=== PATIENT | male | born 1980 | race Caucasian/White ===

== ENCOUNTER 2017-02-27 13:45 | Outpatient (CLI) | payer MEDICAID ==
[2017-03-01 00:23] LABS: AMPHETAMINES NEGATIVE ng/mL (< 500); BARBITURATES NEGATIVE ng/mL (< 300); BENZODIAZEPINES NEGATIVE ng/mL (< 100); MARIJUANA METABOLITE NEGATIVE ng/mL (< 20); MEDMATCH AMPHETAMINES INCONSISTENT (()); MEDMATCH BARBITURATES CONSISTENT (-); MEDMATCH BENZODIAZEPINES CONSISTENT (-); MEDMATCH COCAINE METAB CONSISTENT (-); MEDMATCH MARIJUANA METAB CONSISTENT (-); MEDMATCH METHADONE METAB CONSISTENT (-); MEDMATCH OPIATES CONSISTENT (-); MEDMATCH OXYCODONE CONSISTENT (-); MEDMATCH PHENCYCLIDINE CONSISTENT (-); METHADONE METABOLITE NEGATIVE ng/mL (< 100); OPIATES NEGATIVE ng/mL (< 100); OXIDANT NEGATIVE mcg/mL (< 200); PHENCYCLIDINE NEGATIVE ng/mL (< 25); PRESCRIBED DRUG 1 Adderall(TM) (())
== END 2017-02-27 13:46 | disposition home or self-care (01) ==
LOC: LAB.R 13:45
PROVIDERS: ATTEND Nurse Practitioner Family
DX: F90.0 Attention-deficit hyperactivity disorder, predominantly inattentive type (principal)
CPT/HCPCS: 80307

== ENCOUNTER 2017-05-28 09:20 | Outpatient (CLI) | payer MEDICAID | END 2017-05-28 09:21 | disposition home or self-care (01) | LOC: LAB.R 09:20 | PROVIDERS: ATTEND Nurse Practitioner Family | DX: F90.0 Attention-deficit hyperactivity disorder, predominantly inattentive type (principal) | CPT/HCPCS: 80307 ==

== ENCOUNTER 2017-08-15 08:00 | Outpatient (CLI) | payer MEDICAID ==
[2017-08-15 17:25] LABS: MUDS CUTOFF CONCENTRATIONS CUTOFF CONC BELOW:
[2017-08-15 17:48] LABS: COCAINE SCREEN URINE NEGATIVE (NEGATIVE); METHAMPHETAMINES SCREEN, URINE NEGATIVE (NEGATIVE); OPIATE SCREEN, URINE NEGATIVE (NEGATIVE)
[2017-08-15 17:49] LABS: AMPHETAMINE SCREEN,URINE POSITIVE (NEGATIVE); BENZODIAZEPINES SCREEN, URINE NEGATIVE (NEGATIVE); METHADONE SCREEN, URINE NEGATIVE (NEGATIVE); OXYCODONE SCREEN, URINE NEGATIVE (NEGATIVE); PROPOXYPHENE SCREEN, URINE NEGATIVE (NEGATIVE); TRICYCLIC ANTIDEPRESSANT,URINE NEGATIVE (NEGATIVE)
== END 2017-08-15 08:01 | disposition home or self-care (01) ==
LOC: LAB.R 08:00
PROVIDERS: ATTEND Nurse Practitioner Family
DX: F98.8 Other specified behavioral and emotional disorders with onset usually occurring in childhood and adolescence (principal)
CPT/HCPCS: 80306

== ENCOUNTER 2017-09-10 13:55 | Outpatient (CLI) | payer MEDICAID | END 2017-09-10 13:56 | disposition home or self-care (01) | LOC: LAB.R 13:55 | PROVIDERS: ATTEND Nurse Practitioner Family | DX: F90.0 Attention-deficit hyperactivity disorder, predominantly inattentive type (principal) | CPT/HCPCS: 80307; 80321; 80324; 80346; 80354; 80362; 81599 ==

== ENCOUNTER 2017-12-11 08:00 | Outpatient (CLI) | payer MEDICAID ==
[2017-12-12 08:58] LABS: MUDS CUTOFF CONCENTRATIONS CUTOFF CONC BELOW:
[2017-12-12 09:23] LABS: AMPHETAMINE SCREEN,URINE NEGATIVE (NEGATIVE); BENZODIAZEPINES SCREEN, URINE NEGATIVE (NEGATIVE); COCAINE SCREEN URINE NEGATIVE (NEGATIVE); METHADONE SCREEN, URINE NEGATIVE (NEGATIVE); METHAMPHETAMINES SCREEN, URINE NEGATIVE (NEGATIVE); OPIATE SCREEN, URINE NEGATIVE (NEGATIVE); OXYCODONE SCREEN, URINE NEGATIVE (NEGATIVE); PROPOXYPHENE SCREEN, URINE NEGATIVE (NEGATIVE); TRICYCLIC ANTIDEPRESSANT,URINE NEGATIVE (NEGATIVE)
== END 2017-12-11 23:59 ==
LOC: LAB.R 08:00
PROVIDERS: ATTEND Nurse Practitioner Family
DX: F90.0 Attention-deficit hyperactivity disorder, predominantly inattentive type (principal); Z79.899 Other long term (current) drug therapy
CPT/HCPCS: 80306

== ENCOUNTER 2018-03-11 14:53 | Outpatient (CLI) | payer MEDICAID | END 2018-03-11 14:54 | disposition home or self-care (01) | LOC: LAB.R 14:53 | PROVIDERS: ATTEND Nurse Practitioner Family | DX: F90.0 Attention-deficit hyperactivity disorder, predominantly inattentive type (principal); Z79.899 Other long term (current) drug therapy | CPT/HCPCS: 80306 ==

== ENCOUNTER 2018-10-02 19:40 | Emergency (ER) | payer MEDICAID ==
[2018-10-02 19:52] VITALS: BP 154/87
[2018-10-02] MEDS ORDERED: AMOXICILLIN 250 MG CAPSULE PO STA (20:49)
[2018-10-02] MEDS ORDERED: DEXAMETHASONE 10 MG/ML VIAL PO STA (20:49)
[2018-10-02] MEDS ORDERED: IBUPROFEN 800 MG TABLET PO STA (20:50)
--- NOTE | 2018-10-02 21:01 | ED Physician Documentation ---
PD HPI URI - Stated complaint Stated Complaint: EAR PX - Chief complaint Chief Complaint: Wound - History obtained from History obtained from: Patient - History of Present Illness Timing - onset: Yesterday Timing duration: Days (2) Timing details: Gradual onset Pain level max: 7 Pain level now: 5 Associated symptoms: Ear pain (L ear pain). No: Fever, Chills, Rhinorrhea, Sinus pain, Sore throat, Dry cough, Dyspnea Contributing factors: Sick contact, Travel ([facility]). No: Immunocompromised, Unimmunized Improves by: Rest, Medication (motrin) Worsened by: Other (nothing) Recently seen: Not recently seen Review of Systems Constitutional: denies: Fever, Chills Throat: denies: Sore throat GI: denies: Abdominal Pain, Vomiting, Diarrhea Skin: reports: Rash (bug bites while on vacations) Neurologic: denies: Headache PD PAST MEDICAL HISTORY - Past Medical History Past Medical History: No Cardiovascular: None Respiratory: None Neuro: None Endocrine/Autoimmune: None GI: None : None HEENT: None Psych: None Musculoskeletal: None Derm: None - Past Surgical History Past Surgical History: No - Present Medications Home Medications: Ambulatory Orders Medication Instructions Recorded Confirmed Amoxicillin 500 mg PO TID #30 capsule 10/02/18 Dextroamphetamine/Amphetamine 1 tab PO DAILY 10/02/18 10/02/18 [Adderall 30 mg Tablet] - Allergies Allergies/Adverse Reactions: Allergies Allergy/AdvReac Type Severity Reaction Status Date / Time No Known Drug Allergies Allergy Verified 10/02/18 19:52 - Social History Does the pt smoke?: No Smoking Status: Never smoker Does the pt drink ETOH?: Yes ETOH Use: Beer Does the pt have substance abuse?: No - Immunizations Immunizations are current?: Yes - POLST Patient has POLST: No PD ED PE NORMAL - Vitals Vital signs reviewed: Yes - General General: Alert and oriented X 3, No acute distress - HEENT HEENT: Moist mucous membranes, Pharynx benign, Other (L TM Is erythematous, retracted with purulent fluid. Right TM is normal.) - Neck Neck: Supple, no meningeal sign, No adenopathy - Cardiac Cardiac: RRR, Strong equal pulses - Respiratory Respiratory: No respiratory distress, Clear bilaterally - Abdomen Abdomen: Soft, Non tender, Non distended - Derm Derm: Warm and dry, Other (Bug bites to the right arm) - Neuro Neuro: Alert and oriented X 3 - Psych Psych: Normal mood, Normal affect Results - Vitals Vitals: Vital Signs - 24 hr 10/02/18 19:49 Temperature 36.5 C Heart Rate 114 H Respiratory 16 Rate Blood Pressure 154/87 H O2 Saturation 98 Oxygen O2 Source Room air PD MEDICAL DECISION MAKING - ED course Complexity details: considered differential, d/w patient ED course: 38-year-old male with a left acute otitis media. Will place on antibiotics and follow-up with his doctor. He is well-appearing, nontoxic. Patient counseled regarding signs and symptoms for which I believe and urgent re-evaluation would be necessary. Patient with good understanding of and agreement to plan and is comfortable going home at this time This document was made in part using voice recognition software. While efforts are made to proofread this document, sound alike and grammatical errors may occur. Departure - Departure Disposition: 01 Home, Self Care Clinical Impression: Otitis media Qualifiers: Otitis media type: unspecified Chronicity: acute Qualified Code(s): H66.90 - Otitis media, unspecified, unspecified ear Condition: Good Instructions: ED Otitis Media Acute Adult Follow-Up: Julissa Archuleta ARNP [Primary Care Provider] - Within 1 week Prescriptions: Amoxicillin 500 mg PO TID #30 capsule Comments: Take all antibiotics until gone. Return if you worsen.
[2018-10-02] MEDS ORDERED: CHERRY SYRUP 10 ML UDC PO ONE (21:15)
== END 2018-10-02 21:23 | disposition home or self-care (01) ==
LOC: ED 19:40
DX: H66.92 Otitis media, unspecified, left ear (principal)
CPT/HCPCS: 99283; A9270

== ENCOUNTER 2020-01-15 13:52 | Outpatient (CLI) | payer MEDICAID | END 2020-01-15 13:53 | disposition home or self-care (01) | LOC: LAB 13:52 | PROVIDERS: ATTEND Family Medicine | DX: Z20.828 Contact with and (suspected) exposure to other viral communicable diseases (principal) | CPT/HCPCS: 81599 ==

== ENCOUNTER 2021-02-21 11:23 | Outpatient (CLI) | payer MEDICAID ==
--- NOTE | 2021-02-21 11:51 | XRAY Report ---
PROCEDURE: Lumbar Spine 2 View INDICATIONS: LOW BACK PAIN TECHNIQUE: 3 views of the lumbar spine were acquired. COMPARISON: None. FINDINGS: Bones: 5 [id number] vertebrae are present. There is normal bony alignment. No vertebral body compression fractures. No suspicious bony lesions. Soft tissues: Overlying bowel gas pattern is normal. No suspicious soft tissue calcifications. IMPRESSION: Normal lumbar spine Reviewed by: Jim Mann on 02/21/2021 11:50 AM PDT Approved by: Jim Mann on 02/21/2021 11:50 AM PDT Station ID: [id number]
--- NOTE | 2021-02-21 11:52 | XRAY Report ---
PROCEDURE: Sacrum/Coccyx INDICATIONS: BACK PAIN TECHNIQUE: 3 views of the sacrum and coccyx acquired. COMPARISON: None. FINDINGS: No fracture. Sacroiliac joints appear grossly intact. No evidence of erosions or ankylosis. Mild lowe r lumbar facet arthropathy. IMPRESSION: Unremarkable examination. If the patient's pain or other symptoms persist, consider further evaluatio n with pelvis MRI. Reviewed by: Donald Cantrell MD on 02/21/2021 11:51 AM PDT Approved by: Donald Cantrell MD on 02/21/2021 11:51 AM PDT Station ID: [id number]
== END 2021-02-21 11:24 | disposition home or self-care (01) ==
LOC: DI.S 11:23
PROVIDERS: ATTEND Naturopath
DX: M54.5 Low back pain (principal)

== ENCOUNTER 2022-06-07 11:11 | Outpatient (CLI) | payer MEDICAID ==
[2022-06-07 14:43] LABS: BASOPHILS % (AUTO) 0.6 %; EOSINOPHILS # (AUTO) 0.1 10^3/uL (0.0-0.7); EOSINOPHILS % (AUTO) 2.3 %; HCT - HEMATOCRIT 45.7 % (42.0-52.0); LYMPHOCYTES # (AUTO) 1.4 10^3/uL (1.5-3.5); LYMPHOCYTES % (AUTO) 30.3 %; MEAN CORPUSCULAR HEMOGLOBIN 29.7 pg (27.0-31.0); MEAN CORPUSCULAR HGB CONC 32.8 g/dL (32.0-36.0); MEAN CORPUSCULAR VOLUME 90.5 fL (80.0-94.0); MEAN PLATELET VOLUME 11.9 fL (7.4-11.4); MONOCYTES # (AUTO) 0.2 10^3/uL (0.0-1.0); MONOCYTES % (AUTO) 5.1 %; NEUTROPHILS # (AUTO) 2.9 10^3/uL (1.5-6.6); NEUTROPHILS % (AUTO) 61.5 %; PLT - PLATELET COUNT 228 10^3/uL (130-450); RED BLOOD COUNT 5.05 10^6/uL (4.70-6.10); RED CELL DISTRIBUTION WIDTH 12.5 % (12.0-15.0); WHITE BLOOD COUNT 4.7 x10^3/uL (4.8-10.8)
[2022-06-07 15:44] LABS: ALBUMIN 4.2 g/dL (3.2-5.5); ALBUMIN/GLOBULIN RATIO 1.3 (1.0-2.2); ALKALINE PHOSPHATASE 62 IU/L (42-121); ALT ALANINE AMINOTRANSFERASE 19 IU/L (10-60); AST ASPARTATE AMINOTRANSFERASE 17 IU/L (10-42); BILIRUBIN,TOTAL 0.8 mg/dL (0.2-1.0); BUN - BLOOD UREA NITROGEN 15 mg/dL (6-20); CALCIUM 9.2 mg/dL (8.5-10.3); CARBON DIOXIDE - CO2 29 mmol/L (21-32); CHLORIDE 104 mmol/L (101-111); CHOL/HDL RATIO 3.9 (<5.0); CHOLESTEROL 193 mg/dL; CREATININE 1.1 mg/dL (0.6-1.2); CRP HIGH SENSITIVITY 0.8 mg/L; GFR - MDRD 74 (>89); GLUCOSE 98 mg/dL (70-100); HDL CHOLESTEROL 50 mg/dL; LDL CHOLESTEROL,CALCULATED 131 mg/dL; LDL/HDL RATIO 2.6 (<3.6); POTASSIUM 4.1 mmol/L (3.5-5.0); SODIUM 140 mmol/L (135-145); TOTAL PROTEIN 7.4 g/dL (6.7-8.2); TRIGLYCERIDES 59 mg/dL; VLDL CHOLESTEROL 12 mg/dL
[2022-06-07 15:54] LABS: FREE T3 3.15 pg/mL (2.5-3.9)
[2022-06-07 15:56] LABS: THYROID STIMULATING HORMONE 1.76 uIU/mL (0.34-5.60)
[2022-06-07 15:57] LABS: FREE T4 (FREE THYROXINE) 0.92 ng/dL (0.58-1.64)
[2022-06-07 16:00] LABS: FERRITIN 63.9 ng/mL (23.9-336.2)
[2022-06-07 20:09] LABS: ESTIMATED AVERAGE GLUCOSE 100 mg/dL (70-100); HEMOGLOBIN A1c% 5.1 % (4.27-6.07)
[2022-06-08 04:08] LABS: VITAMIN D 25-HYDROXY 25.6 ng/mL (30.0-100.0)
[2022-06-10 12:08] LABS: FREE TESTOSTERONE(DIRECT) 15.3 pg/mL (6.8-21.5); SEX HORM BINDING GLOB SERUM 43.7 nmol/L (16.5-55.9)
== END 2022-06-07 11:12 | disposition home or self-care (01) ==
LOC: LAB.S 11:11
PROVIDERS: ATTEND Family Medicine
DX: E78.5 Hyperlipidemia, unspecified (principal); R53.83 Other fatigue; E03.9 Hypothyroidism, unspecified; E55.9 Vitamin D deficiency, unspecified; K62.5 Hemorrhage of anus and rectum; R73.09 Other abnormal glucose; N52.9 Male erectile dysfunction, unspecified
CPT/HCPCS: 36415; 80050; 80061; 82306; 82626; 82728; 83036; 83090; 83721; 84270; 84402; 84403; 84439; 84480; 84481; 86141

== ENCOUNTER 2023-05-31 12:55 | Outpatient (CLI) | payer MEDICAID ==
[2023-05-31 14:34] LABS: BASOPHILS # (AUTO) 0.1 10^3/uL (0.0-0.1); BASOPHILS % (AUTO) 1.2 %; EOSINOPHILS # (AUTO) 0.1 10^3/uL (0.0-0.7); EOSINOPHILS % (AUTO) 1.8 %; HCT - HEMATOCRIT 44.3 % (42.0-52.0); HGB - HEMOGLOBIN 14.6 g/dL (14.0-18.0); LYMPHOCYTES # (AUTO) 1.3 10^3/uL (1.5-3.5); LYMPHOCYTES % (AUTO) 27.2 %; MEAN CORPUSCULAR HEMOGLOBIN 29.6 pg (27.0-31.0); MEAN CORPUSCULAR VOLUME 89.7 fL (80.0-94.0); MONOCYTES # (AUTO) 0.4 10^3/uL (0.0-1.0); MONOCYTES % (AUTO) 7.1 %; NEUTROPHILS # (AUTO) 3.1 10^3/uL (1.5-6.6); NEUTROPHILS % (AUTO) 62.3 %; PLT - PLATELET COUNT 223 10^3/uL (130-450); RED BLOOD COUNT 4.94 10^6/uL (4.70-6.10); RED CELL DISTRIBUTION WIDTH 11.9 % (12.0-15.0); WHITE BLOOD COUNT 4.9 x10^3/uL (4.8-10.8)
[2023-05-31 15:17] LABS: ALBUMIN 4.5 g/dL (3.2-5.5); ALBUMIN/GLOBULIN RATIO 1.9 (1.0-2.2); BILIRUBIN,TOTAL 0.4 mg/dL (0.2-1.0); CALCIUM 9.3 mg/dL (8.5-10.3); CREATININE 1.1 mg/dL (0.6-1.3); CRP HIGH SENSITIVITY 0.64 mg/L; POTASSIUM 3.9 mmol/L (3.5-4.5); TOTAL PROTEIN 6.9 g/dL (6.4-8.9)
[2023-05-31 15:31] LABS: FERRITIN 108.6 ng/mL (23.9-336.2)
== END 2023-05-31 12:56 | disposition home or self-care (01) ==
LOC: LAB.S 12:55
PROVIDERS: ATTEND Family Medicine
DX: R53.83 Other fatigue (principal); B37.82 Candidal enteritis; E55.9 Vitamin D deficiency, unspecified; E72.11 Homocystinuria; R74.8 Abnormal levels of other serum enzymes; E78.5 Hyperlipidemia, unspecified; D64.9 Anemia, unspecified
CPT/HCPCS: 36415; 80053; 82306; 82626; 82728; 83090; 83540; 84466; 85025; 86141

== ENCOUNTER 2024-01-01 14:50 | Outpatient (CLI) | payer MEDICAID ==
[2024-01-01 23:10] LABS: CHLAMYDIA TRACHOMATIS DNA NEGATIVE (NEGATIVE); NEISSERIA GONORRHOEAE DNA NEGATIVE (NEGATIVE); TRICHOMONAS VAGINALIS DNA NEGATIVE (NEGATIVE)
[2024-01-03 01:08] LABS: HIV SCREEN 4TH GENERATION Non Reactive (Non Reactive)
== END 2024-01-01 14:51 | disposition home or self-care (01) ==
LOC: LAB.S 14:50
PROVIDERS: ATTEND Emergency Medicine
DX: Z72.51 High risk heterosexual behavior (principal)
CPT/HCPCS: 36415; 86317; 86592; 86695; 86696; 86803; 87340; 87389; 87491; 87591; 87661